=== PATIENT | male | born 1995 | race Caucasian/White ===

== ENCOUNTER 2019-04-29 20:14 | Emergency (ER) | payer SELFPAY ==
[~2019-04-29] VITALS: Ht 177.8 cm; Wt 68.0 kg
[~2019-04-29 20:14] MED LIST: HYDR-3164 PO
[2019-04-29] MEDS ORDERED: FAMOTIDINE 20 MG/2 ML VIAL IVP ONE (20:45)
[2019-04-29] MEDS ORDERED: ONDANSETRON PF 4 MG/2 ML VIAL. IV ONE (20:45)
[2019-04-29] MEDS ORDERED: LIDO:MAALOX 1:1 20 ML SINGLE DOSE. SWSW ONE (20:45)
[2019-04-29] MEDS ORDERED: IV NORMAL SALINE 1000ML BAG 1,000 ML IV ONE (20:45)
[2019-04-29 20:53] LABS: BASO % 0 % (0-3); EOS # 0.1 x10^3/uL (0.0-0.7); EOS % 1 % (0-3); HEMOGLOBIN 15.5 g/dL (13.0-17.5); LYMPH # 1.9 x10^3/uL (1.0-4.8); LYMPH % 17 % (24-48); MEAN CORPUSCULAR HEMOGLOBIN 31 pg (25-35); MEAN CORPUSCULAR HGB CONC 34 g/dL (31-37); MEAN CORPUSCULAR VOLUME 91 fL (79-100); MONO # 1.2 x10^3/uL (0.0-1.1); MONO % 10 % (0-9); NEUT # 8.1 x10^3/uL (1.8-7.7); NEUT % 72 % (31-73); PLATELET COUNT 201 x10^3/uL (140-400); RED BLOOD COUNT 4.96 x10^6/uL (4.30-5.70); RED CELL DISTRIBUTION WIDTH 12.4 % (11.5-14.5); WHITE BLOOD COUNT 11.2 x10^3/uL (4.0-11.0)
[2019-04-29 20:55] LABS: BILIRUBIN,URINE NEGATIVE (NEG); CLARITY,URINE CLEAR; COLOR,URINE YELLOW; NITRITE,URINE NEGATIVE (NEG); PROTEIN,URINE NEGATIVE (NEG-TRACE); UROBILINOGEN,URINE 0.2 mg/dL (0.2 mg/dL)
[2019-04-29 21:01] LABS: BARBITURATES NEG (NEG); BENZODIAZEPINES NEG (NEG); CALCIUM 8.5 mg/dL (8.5-10.1); CANNABINOIDS NEG (NEG); COCAINE POS (NEG); CREATININE 0.9 mg/dL (0.7-1.3); GFR 105.5; METHADONE NEG (NEG); OPIATES NEG (NEG); PHENCYCLIDINE NEG (NEG); POTASSIUM 4.2 mmol/L (3.5-5.1)
[2019-04-29 21:02] LABS: AMPHETAMINE/METHAMPHETAMINE NEG (NEG); BACTERIA,URINE 0 /HPF (0-FEW)
[2019-04-29 21:07] LABS: ALBUMIN 4.1 g/dL (3.4-5.0); ALBUMIN/GLOBULIN RATIO 1.1 (1.0-1.7); TOTAL BILIRUBIN 0.1 mg/dL (0.2-1.0); TOTAL PROTEIN 7.8 g/dL (6.4-8.2)
[2019-04-29] MEDS ORDERED: IOHEXOL 300 MG/ML 100ML VIAL. IV ONE (21:15)
[2019-04-29] MEDS ORDERED: CONTRAST GIVEN. MC PRN (21:15)
--- NOTE | 2019-04-29 21:34 | RAD ---
CT abdomen pelvis with contrast dated 04/29/2019. No comparison available. Clinical data indication: Epigastric pain. TECHNIQUE: Per contiguous axial imaging of the abdomen and pelvis performed after the administration of 75 cc Omnipaque 350. One or more of the following individualized dose reduction techniques were utilized for this examination: 1. Automated exposure control 2. Adjustment of the mA and/or kV according to patient size 3. Use of iterative reconstruction technique. FINDINGS: Limited images of lung bases are clear. Heart size within normal limits. No pleural or pericardial effusion. Liver, spleen, pancreas, adrenal glands, gallbladder and kidneys are unremarkable. No hydronephrosis. Unopacified GI tract normal in caliber and contour. No focal bowel wall thickening. No inflammatory stranding in the mesentery. The appendix is normal in caliber. No ascites or lymphadenopathy. Images of pelvis show nondistended urinary bladder. Prostate gland normal in size. No free pelvic fluid or pelvic lymphadenopathy. Bone windows show no acute findings. IMPRESSION: No acute abnormality of abdomen or pelvis. Normal appendix. Electronically signed by: Jerrell Day MD (04/29/2019 9:32 PM) [facility]
[2019-04-29] MEDS ORDERED: ONDA4TAB12 PO (22:54)
--- NOTE | 2019-04-29 22:54 | PHYS DOC ---
Past Medical History Past Medical History: No Pertinent History (ALESIA WALTON APRN) Past Surgical History: No Surgical History (ALESIA WALTON APRN) Alcohol Use: Occasionally Drug Use: Marijuana (ALESIA WALTON APRN) Attending Signature I have participated in the care of this patient and I have reviewed and agree with all pertinent clinical information above including history, exam, and recommendations. (SEAN SORIA MD) Adult General Chief Complaint Chief Complaint: ABDOMINAL PAIN HPI HPI Patient is a 24 year old male who presents to the ED today complaining of 6 out of 10 sharp epigastric abdominal pain with nausea and vomiting that began a couple minutes prior to coming to the ED. Patient was drinking prior to this pain onset. Denies any diarrhea. He states the pain is worse on taking deep breaths and touching the epigastric region. Denies anything specifically relieving this pain. (ALESIA WALTON APRN) Review of Systems Review of Systems Constitutional: Denies fever or chills [] Eyes: Denies change in visual acuity, redness, or eye pain [] HENT: Denies nasal congestion or sore throat [] Respiratory: Denies cough or shortness of breath [] Cardiovascular: No additional information not addressed in HPI [] GI: Reports epigastric abdominal pain with nausea and vomiting, denies bloody stools or diarrhea [] : Denies dysuria or hematuria [] Musculoskeletal: Denies back pain or joint pain [] Integument: Denies rash or skin lesions [] Neurologic: Denies headache, focal weakness or sensory changes [] All other systems were reviewed and found to be within normal limits, except as documented in this note. (ALESIA WALTON APRN) Current Medications Current Medications Current Medications Medications (Trade) Dose Ordered Sig/Sesar Start Time Stop Time Status Last Admin Dose Admin Famotidine (Pepcid Vial) 20 mg 1X ONCE 04/29/19 20:45 04/29/19 20:46 DC 04/29/19 21:00 20 MG Info (CONTRAST GIVEN -- Rx MONITORING) 1 each PRN DAILY PRN 04/29/19 21:15 04/29/19 23:25 DC Iohexol (Omnipaque 300 Mg/ml) 75 ml 1X ONCE 04/29/19 21:15 04/29/19 21:16 DC 04/29/19 21:21 75 ML Multi-Ingredient Mouthwash/Gargle (Gi Cocktail) 20 ml 1X ONCE 04/29/19 20:45 04/29/19 20:46 DC 04/29/19 20:57 20 ML Ondansetron HCl (Zofran) 4 mg 1X ONCE 04/29/19 20:45 04/29/19 20:46 DC 04/29/19 20:59 4 MG Sodium Chloride 1,000 ml @ 1,000 mls/hr 1X ONCE 04/29/19 20:45 04/29/19 21:44 DC 04/29/19 20:59 1,000 MLS/HR (SEAN SORIA MD) Allergies Allergies Allergies Coded Allergies Type Severity Reaction Last Updated Verified No Known Drug Allergies 06/21/16 No (SEAN SORIA MD) Physical Exam Physical Exam Constitutional: Well developed, well nourished, no acute distress, non-toxic appearance. [] HENT: Normocephalic, atraumatic, bilateral external ears normal, oropharynx moist, no oral exudates, nose normal. [] Eyes: PERRLA, EOMI, conjunctiva normal, no discharge. [] Neck: Normal range of motion, no tenderness, supple, no stridor. [] Cardiovascular:Heart rate regular rhythm, no murmur [] Lungs & Thorax: Bilateral breath sounds clear to auscultation [] Abdomen: Bowel sounds normal, soft, slight epigastric tenderness, no right upper quadrant or right lower quadrant tenderness, no masses, no pulsatile masses. [] Skin: Warm, dry, no erythema, no rash. [] Back: No tenderness, no CVA tenderness. [] Extremities: No tenderness, no cyanosis, no clubbing, ROM intact, no edema. [] Neurologic: Alert and oriented X 3, normal motor function, normal sensory function, no focal deficits noted. [] Psychologic: Affect normal, judgement normal, mood normal. [] (ALESIA WALTON APRN) Current Patient Data Vital Signs Vital Signs Date Time Temp Pulse Resp B/P (MAP) Pulse Ox O2 Delivery O2 Flow Rate FiO2 04/29/19 23:16 73 18 106/56 (73) 98 Room Air 04/29/19 20:30 98.7 98.7 (SEAN SORIA MD) Lab Values Laboratory Tests Test 04/29/19 20:45 White Blood Count 11.2 x10^3/uL (4.0-11.0) H Red Blood Count 4.96 x10^6/uL (4.30-5.70) Hemoglobin 15.5 g/dL (13.0-17.5) Hematocrit 45.0 % (39.0-53.0) Mean Corpuscular Volume 91 fL (79-100) Mean Corpuscular Hemoglobin 31 pg (25-35) Mean Corpuscular Hemoglobin Concent 34 g/dL (31-37) Red Cell Distribution Width 12.4 % (11.5-14.5) Platelet Count 201 x10^3/uL (140-400) Neutrophils (%) (Auto) 72 % (31-73) Lymphocytes (%) (Auto) 17 % (24-48) L Monocytes (%) (Auto) 10 % (0-9) H Eosinophils (%) (Auto) 1 % (0-3) Basophils (%) (Auto) 0 % (0-3) Neutrophils # (Auto) 8.1 x10^3/uL (1.8-7.7) H Lymphocytes # (Auto) 1.9 x10^3/uL (1.0-4.8) Monocytes # (Auto) 1.2 x10^3/uL (0.0-1.1) H Eosinophils # (Auto) 0.1 x10^3/uL (0.0-0.7) Basophils # (Auto) 0.0 x10^3/uL (0.0-0.2) Urine Collection Type Unknown Urine Color Yellow Urine Clarity Clear Urine pH 6.0 Urine Specific [place] >=1.030 Urine Protein Negative mg/dL (NEG-TRACE) Urine Glucose (UA) Negative mg/dL (NEG) Urine Ketones (Stick) Negative mg/dL (NEG) Urine Blood Negative (NEG) Urine Nitrite Negative (NEG) Urine Bilirubin Negative (NEG) Urine Urobilinogen Dipstick 0.2 mg/dL (0.2 mg/dL) Urine Leukocyte Esterase Negative (NEG) Urine RBC 3-5 /HPF (0-2) Urine WBC 1-4 /HPF (0-4) Urine Bacteria 0 /HPF (0-FEW) Urine Mucus Marked /LPF Sodium Level 141 mmol/L (136-145) Potassium Level 4.2 mmol/L (3.5-5.1) Chloride Level 103 mmol/L (98-107) Carbon Dioxide Level 25 mmol/L (21-32) Anion Gap 13 (6-14) Blood Urea Nitrogen 16 mg/dL (8-26) Creatinine 0.9 mg/dL (0.7-1.3) Estimated GFR (Cockcroft-Gault) 105.5 BUN/Creatinine Ratio 18 (6-20) Glucose Level 97 mg/dL (70-99) Calcium Level 8.5 mg/dL (8.5-10.1) Total Bilirubin 0.1 mg/dL (0.2-1.0) L Aspartate Amino Transferase (AST) 41 U/L (15-37) H Alanine Aminotransferase (ALT) 30 U/L (16-63) Alkaline Phosphatase 76 U/L (46-116) Total Protein 7.8 g/dL (6.4-8.2) Albumin 4.1 g/dL (3.4-5.0) Albumin/Globulin Ratio 1.1 (1.0-1.7) Lipase 93 U/L (73-393) Urine Opiates Screen Neg (NEG) Urine Methadone Screen Neg (NEG) Urine Barbiturates Neg (NEG) Urine Phencyclidine Screen Neg (NEG) Urine Amphetamine/Methamphetamine Neg (NEG) Urine Benzodiazepines Screen Neg (NEG) Urine Cocaine Screen Pos (NEG) Urine Cannabinoids Screen Neg (NEG) Ethyl Alcohol Level 14 mg/dL (0-10) H Urine Ethyl Alcohol Neg (NEG) Laboratory Tests 04/29/19 20:45 Laboratory Tests 04/29/19 20:45 (SEAN SORIA MD) EKG EKG [] (ALESIA WALTON APRN) Radiology/Procedures Radiology/Procedures []PROCEDURE: CT ABD PELV W/ IV CONTRST ONLY CT abdomen pelvis with contrast dated 04/29/2019. No comparison available. Clinical data indication: Epigastric pain. TECHNIQUE: Per contiguous axial imaging of the abdomen and pelvis performed after the administration of 75 cc Omnipaque 350. One or more of the following individualized dose reduction techniques were utilized for this examination: 1. Automated exposure control 2. Adjustment of the mA and/or kV according to patient size 3. Use of iterative reconstruction technique. FINDINGS: Limited images of lung bases are clear. Heart size within normal limits. No pleural or pericardial effusion. Liver, spleen, pancreas, adrenal glands, gallbladder and kidneys are unremarkable. No hydronephrosis. Unopacified GI tract normal in caliber and contour. No focal bowel wall thickening. No inflammatory stranding in the mesentery. The appendix is normal in caliber. No ascites or lymphadenopathy. Images of pelvis show nondistended urinary bladder. Prostate gland normal in size. No free pelvic fluid or pelvic lymphadenopathy. Bone windows show no acute findings. IMPRESSION: No acute abnormality of abdomen or pelvis. Normal appendix. Electronically signed by: Jerrell Day MD (04/29/2019 9:32 PM) [facility] DICTATED and SIGNED BY: JERRELL DAY MD DATE: 04/29/192131 (ALESIA WALTON APRN) Course & Med Decision Making Course & Med Decision Making Pertinent Labs and Imaging studies reviewed. (See chart for details) This is a 24-year-old male patient presenting to the ED today with sudden onset of epigastric abdominal pain with nausea and vomiting that began a couple minutes prior to coming to the ED while he was drinking. Alcohol level 14. Drug screen negative. CBC with a WBC of 11.2, CMP with no acute findings, lipase is normal. Patient was given a liter of fluid, GI cocktail and Zofran and Pepcid. CT of the abdomen and pelvic is negative. He is feeling better. He was discharged to home. Encouraged to get help for alcohol use (ALESIA WALTON APRN) Dragon Disclaimer Dragon Disclaimer This electronic medical record was generated, in whole or in part, using a voice recognition dictation system. (ALESIA WALTON APRN) Departure Departure Impression: Primary Impression: Epigastric pain Additional Impressions: Alcohol use Nausea & vomiting Disposition: HOME, SELF-CARE Condition: STABLE Referrals: NO PCP (PCP) FERNANDO BECKETT MD follow up in one week Patient Instructions: Abdominal Pain, Alcohol Intoxication Additional Instructions: You were evaluated in the emergency room for abdominal pain. Your alcohol level was high. We recommend you consider getting help for alcohol use. Your work up in the emergency room is otherwise negative. Scripts Ondansetron (ONDANSETRON ODT) 4 Mg Tab.rapdis 1 TAB PO PRN Q6-8HRS, #16 TAB Prov: ALESIA WALTON APRN 04/29/19 Problem Qualifiers Additional Impressions: Nausea & vomiting Vomiting type: unspecified Vomiting Intractability: non-intractable Qualified Codes: R11.2 - Nausea with vomiting, unspecified ALESIA WALTON APRN Apr 29, 2019 22:54 SEAN SORIA MD Apr 30, 2019 00:35
[2019-04-29 23:16] VITALS: BP 106/56
== END 2019-04-29 23:20 | disposition home or self-care (01) ==
LOC: ER 20:14
DX: R10.13 Epigastric pain (principal); R11.2 Nausea with vomiting, unspecified; Z72.89 Other problems related to lifestyle; F12.90 Cannabis use, unspecified, uncomplicated
CPT/HCPCS: 36415; 74177; 80053; 80307; 81001; 83690; 85025; 96361; 96374; 96375; 99285; G0480; J2405; J3490; J7030; Q9967

== ENCOUNTER 2021-03-02 19:39 | Emergency (ER) | payer SELFPAY ==
[~2021-03-02] VITALS: Ht 177.8 cm; Wt 65.0 kg
[~2021-03-02 19:39] MED LIST changes: +ONDA4TAB12 PO
[2021-03-02 21:34] VITALS: BP 106/83
== END 2021-03-02 21:00 | disposition left against medical advice (07) ==
LOC: ER 19:39
DX: R11.0 Nausea (principal); R42 Dizziness and giddiness; Z53.21 Procedure and treatment not carried out due to patient leaving prior to being seen by health care provider

== ENCOUNTER 2021-07-03 06:52 | Emergency (ER) | payer SELFPAY ==
[~2021-07-03] VITALS: Ht 177.8 cm; Wt 67.2 kg
--- NOTE | 2021-07-03 07:24 | PHYS DOC ---
Past Medical History Past Medical History: No Pertinent History Past Surgical History: No Surgical History Smoking Status: Current Every Day Smoker Alcohol Use: Occasionally Drug Use: Marijuana General Adult EDM: Chief Complaint: SHORTNESS OF BREATH HPI: HPI: Patient is a 26 year old male who presents here with multiple complaints. His cousin reportedly brought him in because he was "disoriented." The patient admits to using drugs, he is not sure what drugs he might have used, he reports that he woke up this morning at his aunts house, and he is not sure how he got there. He does normally live with his aunt. He admits that he looks marijuana and frequently uses "hallucinogens." He is anxious. He denies SI or HI. He denies any physical pain or discomfort. He denies headache, dizziness, chest pain, dyspnea, abdominal pain, nausea or vomiting. He does feel paranoid and anxious and upset because he is not sure exactly what drugs he might have done or how he got to his aunts house. He thinks the last thing he remembers was being "out of the hospital." He is not sure when he was at the hospital other than when he was at [facility] at the end of May and being tested for Covid. He reportedly tested positive for Covid on June 20. He has been fully vaccinated, with the second vaccine occurring at the end of February 2021. He denies use of alcohol. He is anxious and wants something to help him calm down. He also requests a nicotine patch. Review of Systems: Review of Systems: Constitutional: Denies fever or chills. [] Eyes: Denies change in visual acuity. [] HENT: Denies nasal congestion or sore throat. [] Respiratory: Denies cough or shortness of breath. [] Cardiovascular: Denies chest pain or edema. [] GI: Denies abdominal pain, nausea, vomiting Musculoskeletal: Denies back pain or joint pain. [] Integument: Denies rash. [] Neurologic: Denies headache, focal weakness or sensory changes. [] Psychiatric: Admits to anxiety and paranoia. Admits to use of illicit drugs. He denies SI or HI. [] Heart Score: C/O Chest Pain: No Risk Factors: Risk Factors: DM, Current or recent (<one month) smoker, HTN, HLP, family history of CAD, obesity. Risk Scores: Score 0 - 3: 2.5% MACE over next 6 weeks - Discharge Home Score 4 - 6: 20.3% MACE over next 6 weeks - Admit for Clinical Observation Score 7 - 10: 72.7% MACE over next 6 weeks - Early Invasive Strategies Allergies: Allergies: Allergies Coded Allergies Type Severity Reaction Last Updated Verified No Known Drug Allergies 06/21/16 No Physical Exam: PE: Constitutional: Well developed, well nourished, he manifests no evidence of acute illness or distress. He is anxious, mildly tremulous, demonstrates some mild psycho motor agitation. HENT: Normocephalic, atraumatic, oropharynx is patent and clear, mucous membranes are moist Eyes: PERRL, EOMI, conjunctiva normal, no discharge. Rotary nystagmus is noted. No scleral icterus Neck: Normal range of motion, no tenderness, supple, no stridor. No meningismus. Trachea is midline Cardiovascular: Tachycardic, regular, +2 radial and +2 posterior tibial pulses bilaterally Lungs & Thorax: Bilateral breath sounds clear to auscultation [] Abdomen: Abdomen is soft, nondistended, nontender to palpation. Skin: Warm, dry, no erythema, no rash. [] Back: No tenderness, no deformity. Extremities: No tenderness, no cyanosis, no clubbing, ROM intact, no edema. No calf tenderness. No limb deformity. Neurologic: He is awake, alert, oriented x3, no facial asymmetry, normal motor strength, 5 out of 5 motor strength all 4 extremities, sensation is grossly intact, no evidence of hyperreflexia, speech is fluent. Psychologic: He is anxious and manifests evidence of some mild to moderate psychomotor agitation. He is redirectable. He is cooperative with staff. Denies SI or HI. [] EKG: EKG: [] Radiology/Procedures: Radiology/Procedures: [] Course & Med Decision Making: Course & Med Decision Making Pertinent Labs and Imaging studies reviewed. (See chart for details) The patient is given a liter of IV fluids as well as IV Ativan. He is resting comfortably. Heart rate is improved. He denies any physical pain or discomfort. He is slightly less agitated. He continues to denies any SI or HI symptoms. He manifests no evidence of alteration in mental status, denies any subjective feelings of confusion. I recommend abstinence of use of illicit drugs, especially that of stimulatory methamphetamines. He reports he has "no idea" how he may have become intoxicated with methamphetamine. I recommend he go home, get plenty of rest, drink plenty fluids and eat healthy food. He is to continue his self-isolation perior for his Covid infection. Return precautions are given. Dragon Disclaimer: Dragon Disclaimer: This electronic medical record was generated, in whole or in part, using a voice recognition dictation system. Departure Departure Impression: Primary Impression: Methamphetamine use Disposition: 01 HOME / SELF CARE / HOMELESS Condition: STABLE Referrals: NO PCP (PCP) Patient Instructions: Methamphetamine Abuse, Complications Additional Instructions: Return to the ER for severe chest pain, severe shortness of breath, uncontrolled vomiting, dehydration, if you feel unsafe, if you are acutely injured, or for any other concerns. Stay well-hydrated, drink plenty of fluids, continue your self-isolation/quarantine perior due to your Covid infection. Follow-up with your primary care physician peer MIRANDA DAVID DO Jul 03, 2021 07:24
[2021-07-03] MEDS ORDERED: IV NORMAL SALINE 1000ML BAG 1,000 ML IV ONE (07:45)
[2021-07-03 08:01] LABS: BILIRUBIN,URINE NEGATIVE (NEG); CLARITY,URINE CLEAR; COLOR,URINE YELLOW; NITRITE,URINE NEGATIVE (NEG); PROTEIN,URINE 30 mg/dL (NEG-TRACE); UROBILINOGEN,URINE 0.2 mg/dL (0.2 mg/dL)
[2021-07-03 08:09] LABS: BARBITURATES NEG (NEG); BENZODIAZEPINES NEG (NEG); CANNABINOIDS NEG (NEG); COCAINE NEG (NEG); METHADONE NEG (NEG); OPIATES NEG (NEG); PHENCYCLIDINE NEG (NEG)
[2021-07-03 08:14] LABS: AMPHETAMINE/METHAMPHETAMINE POS (NEG)
[2021-07-03 08:16] LABS: BACTERIA,URINE 0 /HPF (0-FEW); RBC,URINE 0 /HPF (0-2); WBC,URINE 0 /HPF (0-4)
[2021-07-03 08:48] LABS: CALCIUM 8.3 mg/dL (8.5-10.1); CREATININE 0.9 mg/dL (0.7-1.3); GFR 103.7; POTASSIUM 3.4 mmol/L (3.5-5.1)
[2021-07-03 08:51] LABS: BASO % 0 % (0-3); EOS # 0.1 x10^3/uL (0.0-0.7); EOS % 1 % (0-3); HEMATOCRIT 42.7 % (39.0-53.0); HEMOGLOBIN 14.9 g/dL (13.0-17.5); LYMPH # 1.8 x10^3/uL (1.0-4.8); LYMPH % 18 % (24-48); MEAN CORPUSCULAR HEMOGLOBIN 31 pg (25-35); MEAN CORPUSCULAR HGB CONC 35 g/dL (31-37); MEAN CORPUSCULAR VOLUME 89 fL (79-100); MONO # 1.1 x10^3/uL (0.0-1.1); MONO % 11 % (0-9); NEUT # 7.2 x10^3/uL (1.8-7.7); NEUT % 71 % (31-73); PLATELET COUNT 241 x10^3/uL (140-400); RED CELL DISTRIBUTION WIDTH 12.7 % (11.5-14.5); WHITE BLOOD COUNT 10.2 x10^3/uL (4.0-11.0)
[2021-07-03 08:53] LABS: ACETAMIN < 2 mcg/ml (10-30); ETHANOL < 10 mg/dL (0-10); SALIC 1.1 mg/dL (2.8-20.0)
[2021-07-03 08:54] LABS: MAGNESIUM 1.9 mg/dL (1.8-2.4)
[2021-07-03] MEDS ORDERED: NICOTINE 21MG PATCH. TD SCH (09:00)
[2021-07-03 11:13] VITALS: BP 135/62
== END 2021-07-03 11:16 | disposition home or self-care (01) ==
LOC: ER 06:52
DX: F15.90 Other stimulant use, unspecified, uncomplicated (principal); F17.200 Nicotine dependence, unspecified, uncomplicated
CPT/HCPCS: 36415; 80048; 80307; 80329; 81001; 82550; 83735; 85025; 96361; 96374; 99285; G0480; J2060; J7030